=== PATIENT | female | born 1985 | race Two or more races ===

== ENCOUNTER 2023-02-10 03:42 | Emergency (ER) | payer OTHER ==
[~2023-02-10] VITALS: Ht 160 cm; Wt 68.9 kg
== END 2023-02-10 07:20 | disposition home or self-care (01) ==
LOC: ER 03:42
DX: N20.1 Calculus of ureter (principal)

== ENCOUNTER 2023-02-13 15:27 | Emergency (ER) | payer OTHER ==
[~2023-02-13] VITALS: Ht 160 cm; Wt 68.9 kg
[2023-02-13 17:47] LABS: URINE APPEARANCE Clear; URINE BILIRRUBIN Negative (NEGATIVE); URINE BLOOD Large; URINE COLOR Yellow; URINE GLUCOSE Negative (NEGATIVE); URINE LEUKOCYTE Negative; URINE NITRATE Positive; URINE PROTEIN Negative (NEGATIVE); URINE UROBILINOGEN 0.2 E.U./dl
[2023-02-13 17:48] LABS: URINE WBC 28.5 uL (0.0-23.2)
[2023-02-13 17:59] LABS: HEMATOCRIT 34.7 % (36.0-45.00); HEMOGLOBIN 11.6 g/dL (12.0-15.00); MEAN CELL VOLUME 83.9 fL (80.00-100.00); MEAN CORPUSCULAR HGB CONC 33.4 g/dl (32.0-36.0); PLATELET COUNT 267 K/uL (150-450); RED BLOOD COUNT 4.13 M/uL (4.00-6.00); RED CELL DISTRIBUTION WIDTH 14.6 % (11.5-14.5)
[2023-02-13 18:11] LABS: ALBUMIN 3.6 gm/dL (3.4-5.0); BILIRUBIN TOTAL 0.57 mg/dL (0.3-1.2); CALCIUM 9.2 mg/dL (8.5-10.1); CREATININE SERUM 0.7 mg/dL (0.55-1.02); GFR 93.65; GLOBULINA 3.6 G/DL (2.4-3.5); POTASSIUM 4.21 mEq/L (3.5-5.1); TOTAL PROTEIN 7.2 gm/dL (6.4-8.2)
== END 2023-02-13 22:12 | disposition home or self-care (01) ==
LOC: ER 15:27
DX: N20.1 Calculus of ureter (principal); N39.0 Urinary tract infection, site not specified